=== PATIENT | male | born 1980 | race Caucasian/White ===

== ENCOUNTER 2016-08-21 20:33 | Inpatient (IN) | payer MEDICAID ==
[~2016-08-21] VITALS: Ht 170.2 cm; Wt 75.7 kg
--- NOTE | 2016-08-21 21:45 | ERA ---
ER Documentation Chief Complaint Date/Time DATE: 08/21/16 TIME: 21:44 Chief Complaint states been vomiting blood/blood in stool x 1 day HPI The patient is a 35-year-old male, presenting to the ER because he complains of epigastric abdominal pain 6/10 intermittently for the last 4 days, denies similar symptoms previously. He vomited coffee-ground emesis, about 1 teaspoon 2 today and had multiple bowel movements with black stools for the last day. He denies constipation, hemorrhoids. He complains of dizziness, denies syncope , near syncope, neck pain, chest pain, dyspnea. He takes a lot of ibuprofen for acme-qos-ymmirux for his headache. He smokes a pack a day, denies drinking , denies illicit drug Past medical history: None Past surgical history: Appendectomy ROS All systems reviewed and are negative except as per history of present illness. Medications Home Meds Reported Medications Acetaminophen/Caffeine (Excedrin Tension Headache Cplt) 1 Each Tablet, 2 EACH PO DAILY Y for PAIN, TAB 08/21/16 Allergies Allergies: Coded Allergies: No Known Drug Allergies (Verified Allergy, Unknown, 08/21/16) Physical Exam Vitals Vital Signs Date Time Temp Pulse Resp B/P Pulse Ox O2 Delivery O2 Flow Rate FiO2 08/21/16 21:46 113 16 117/92 100 Room Air 08/21/16 21:20 99.1 120 20 132/75 99 Physical Exam Const: No acute distress. Head: Atraumatic. Eyes: Normal Conjunctiva. ENT: Normal External Ears, Nose and Mouth. Neck: Full range of motion. No meningismus. Resp: Clear to auscultation bilaterally. Cardio: Regular rate and rhythm, no murmurs. Abd: Soft, non distended, normal bowel sounds, mild epigastric tenderness, no right lower quadrant, right upper quadrant, CVA, rigidity, rebound tenderness Skin: No petechiae or rashes. Back: No midline or flank tenderness. Ext: No cyanosis, or edema. Neur: Awake and alert. No focal deficit Psych: Normal Mood and Affect. Rectal: Positive Hemoccult Result Diagram: 08/21/16 2200 08/21/16 2200 Results 24 hrs Laboratory Tests Test 08/21/16 22:00 08/21/16 22:38 Activated Partial Thromboplast Time 27.7Sec Alanine Aminotransferase (ALT/SGPT) 53IU/L Albumin 4.1g/dl Albumin/Globulin Ratio 1.64 Alkaline Phosphatase 75IU/L Anion Gap 15 Aspartate Amino Transf (AST/SGOT) 19IU/L Basophils # 0.010^3/ul Basophils % 0.3% Blood Urea Nitrogen 24mg/dl Calcium Level 9.3mg/dl Carbon Dioxide Level 30mmol/L Chloride Level 101mmol/L Creatinine 0.75mg/dl Direct Bilirubin 0.00mg/dl Eosinophils # 0.010^3/ul Eosinophils % 0.3% Globulin 2.50g/dl Glucose Level 111mg/dl Hematocrit 32.5% Hemoglobin 11.9g/dl INR International Normalized Ratio 0.98 Indirect Bilirubin 0.3mg/dl Lipase 57U/L Lymphocytes # 3.210^3/ul Lymphocytes % 26.7% Mean Corpuscular Hemoglobin 30.4pg Mean Corpuscular Hemoglobin Concent 36.6g/dl Mean Corpuscular Volume 82.9fl Mean Platelet Volume 9.8fl Monocytes # 0.810^3/ul Monocytes % 6.8% Neutrophils # 7.810^3/ul Neutrophils % 65.5% Nucleated Red Blood Cells # 0.010^3/ul Nucleated Red Blood Cells % 0.0/100WBC Platelet Count 45072^3/UL Potassium Level 3.7mmol/L Prothrombin Time 13.0Sec Prothrombin Time Ratio 1.0 Red Blood Count 3.9210^6/ul Red Cell Distribution Width 11.6% Sodium Level 142mmol/L Total Bilirubin 0.3mg/dl Total Protein 6.6g/dl White Blood Count 11.910^3/ul Bedside Urine Blood Negative Bedside Urine Glucose (UA) Negative Bedside Urine Ketones (LAB) Trace Bedside Urine Leukocyte Esterase (L Negative Bedside Urine Nitrite (LAB) Negative Bedside Urine Protein (LAB) Negative Bedside Urine pH (LAB) 6.0 Current Medications Medications (Trade) Dose Ordered Sig/Che Route PRN Reason Start Time Stop Time Status Last Admin Dose Admin Ondansetron HCl 4 mg 4 mg ONCE STAT IV 08/21/16 21:53 08/21/16 21:57 DC 08/21/16 22:13 Sodium Chloride (NS) 1,000 ml @ 1,000 mls/hr Q1H ONCE IV 08/21/16 22:00 08/21/16 22:59 DC 08/21/16 22:11 Lidocaine 1 applic 1 applic ONCE ONCE TOP 08/21/16 22:30 08/21/16 22:31 DC 08/21/16 22:24 Sodium Chloride (NS) 1,000 ml @ 75 mls/hr [id number] IV 08/22/16 00:16 IV Flush (NS 3 ml) 3 ml PER PROTOCOL IV 08/22/16 00:30 Ondansetron HCl (Zofran Inj) 4 mg Q6H PRN IV NAUSEA AND/OR VOMITING 08/22/16 00:30 Acetaminophen (Tylenol Supp) 650 mg Q6H PRN NE PAIN LEVEL 1-3 OR FEVER 08/22/16 00:30 Morphine Sulfate 2 mg 2 mg Q4H PRN IV SEVERE PAIN LEVEL 7-10 08/22/16 00:30 Pantoprazole/ Sodium Chloride (Protonix Iv/NS) 100 ml @ 10 mls/hr Q10H IV 08/22/16 00:30 Procedures/[place] [id number] Radiology Main Line: [phone] DIAGNOSTIC IMAGING REPORT Patient: DERIC MAE : 1980 Age: 35 Sex: M MR #: [id number] DOS: 08/21/162152 Ordering MD: EDIN REINOSO MD Location: E/R Room/Bed: PROCEDURE: XR Chest. CLINICAL INDICATION: Shortness of breath. TECHNIQUE: A single portable view of the chest was obtained. COMPARISON: None FINDINGS: The cardiomediastinal silhouette is within normal limits. 7 mm calcified granuloma in the left lower lung zone is seen. The remaining lungs and pleural spaces are clear. The soft tissues and osseous structures are unremarkable. IMPRESSION: No acute cardiopulmonary disease. 7 mm calcified granuloma in the left lower lung zone. RPTAT: HPNM Physician [place] Date Time Electronically viewed and signed by Tyler Maddox Physician on 08/21/2016 22 :22 / CC: EDIN REINOSO MD [place] [id number] Radiology Main Line: [phone] DIAGNOSTIC IMAGING REPORT Patient: DERIC MAE : 1980 Age: 35 Sex: M MR #: [id number] DOS: 08/21/16 2153 Ordering MD: EDIN REINOSO MD Location: E/R Room/Bed: PROCEDURE: CT abdomen and pelvis without intravenous contrast. CLINICAL INDICATION: Epigastric pain. TECHNIQUE: CT of the abdomen/pelvis was performed utilizing axial images with reconstructions in sagittal and coronal planes. The administered radiation dose is CTDI 17 mGy, DLP 945 mGy-cm. COMPARISON: No pertinent prior examinations were submitted for comparison. FINDINGS: Visualized Chest: A calcified granuloma is noted in the left lower lobe. Abdomen: The spleen, pancreas, gallbladder,and adrenal glands are unremarkable. The liver is diffusely decreased in attenuation, compatible with hepatic steatosis. The kidneys are without hydronephrosis. No definite urinary calculi are seen. There is no evidence of bowel obstruction. Prior appendectomy is noted. No intra-abdominal free air is seen. There is no evidence of intra-abdominal adenopathy or free fluid. Pelvis: There is no evidence of pelvic adenopathy of free fluid. The prostate and bladder are unremarkable. Osseous structures: Unremarkable. IMPRESSION: No acute findings. Hepatic steatosis. RPTAT: HIKT .Alfred Segal MD, MD Date Time Electronically viewed and signed by .Alfred Segal MD, MD on 08/21/2016 23:01 .T/ CC: EDIN REINOSO MD [place] [id number] Radiology Main Line: [phone] DIAGNOSTIC IMAGING REPORT Patient: DERIC MAE : 1980 Age: 35 Sex: M [id number] [id number] DOS: 08/21/16 2308 Ordering MD: EDIN REINOSO MD Location: E/R Room/Bed: PROCEDURE: XR Chest. CLINICAL INDICATION: Nasogastric tube placement TECHNIQUE: Single frontal view of the chest was obtained. COMPARISON: Earlier examination at 10:06 p.m. FINDINGS: The cardiomediastinal silhouette is normal size. Pulmonary vasculature is within normal limits. There is a calcified granuloma in the left lower lung.. There is a nasogastric tube placed extending to the gastric body region. No signs of pleural fluid or pneumothorax are seen. The osseous structures and soft tissues are unremarkable. IMPRESSION: No evidence for active cardiopulmonary disease. Nasogastric tube extending to the gastric body. RPTAT: HBST .Jenaro Shah MD, MD Date Time Electronically viewed and signed by .Jenaro Shah MD, MD on 08/21/2016 23:50 .T/ CC: EDIN REINOSO MD MEDICAL MAKING DECISION: The patient is a 35-year-old male, presenting with acute gastrointestinal bleeding. He was treated with Zofran 4 mg IV for nausea and 1 L normal saline for acute clinical dehydration. The differential diagnoses considered include but are not limited to gastritis, peptic ulcer disease, esophageal varices, Savi-Cantu tear, carcinoma, polyp, hemorrhoid, fissure, diverticulosis, angiodysplasia. Nasogastric tube was inserted that did not drain out any coffee-ground emesis. He was then removed due to patient discomfort Departure Diagnosis: Primary Impression: GI bleed Additional Impression: Anemia Condition: Stable Comments I discussed the findings with the patient. I discussed the patient with the on- call hospitalist at the [facility] who was made aware of the lab, the treatment, the patient condition. The patient is admitted to medical surgery bed at 12:15 AM The patient's blood pressure was elevated (>120/80) but appears stable without evidence of hypertension emergency or urgency. The patient was counseled about the risks of hypertension and urged to pursue outpatient monitoring and therapy within a week after discharge with their primary care physician. EDIN REINOSO MD Aug 21, 2016 21:45
[2016-08-21] MEDS ORDERED: ONDANSETRON 4 MG INJ IV STA (21:53)
[2016-08-21] MEDS ORDERED: SOD CHLORIDE 0.9% 1,000 ML IV ONE (22:00)
[2016-08-21] MEDS ORDERED: ACET1TAB16 PO (22:00)
[2016-08-21 22:20] LABS: ADD SCAN DIFF NO
--- NOTE | 2016-08-21 22:23 | RADRPT ---
PROCEDURE: XR Chest. CLINICAL INDICATION: Shortness of breath. TECHNIQUE: A single portable view of the chest was obtained. COMPARISON: None FINDINGS: The cardiomediastinal silhouette is within normal limits. 7 mm calcified granuloma in the left lower lung zone is seen. The remaining lungs and pleural spaces are clear. The soft tissues and osseous structures are unremarkable. IMPRESSION: No acute cardiopulmonary disease. 7 mm calcified granuloma in the left lower lung zone. RPTAT: HPNM Physician [place] Date Time Electronically viewed and signed by Tyler Maddox Physician on 08/21/2016 22:22 /
[2016-08-21] MEDS ORDERED: LIDOCAINE 2% JELLY 5 ML TOP ONE (22:30)
[2016-08-21 22:32] LABS: INR 0.98
[2016-08-21 22:33] LABS: PARTIAL THROMBOPLASTIN TIME 27.7 Sec (25.0-35.0)
[2016-08-21 22:37] LABS: URINE BLOOD (Dip) POC Negative (NEGATIVE)
[2016-08-21 22:39] LABS: ALBUMIN 4.1 g/dl (3.3-4.9); POTASSIUM 3.7 mmol/L (3.5-5.1)
[2016-08-21 22:42] LABS: ALBUMIN/GLOBULIN RATIO 1.64; BILIRUBIN,INDIRECT 0.3 mg/dl (0-1.1); BILIRUBIN,TOTAL 0.3 mg/dl (0.2-1.3); CALCIUM 9.3 mg/dl (8.4-10.2); CREATININE 0.75 mg/dl (0.61-1.24); TOTAL PROTEIN 6.6 g/dl (6.1-8.1)
[2016-08-21 22:47] LABS: BASOPHILS % 0.3 % (0.0-2.0); EOSINOPHILS % 0.3 % (0.0-7.0); HEMATOCRIT 32.5 % (42.0-52.0); HEMOGLOBIN 11.9 g/dl (14.0-18.0); LYMPHOCYTES # 3.2 10^3/ul (0.8-2.9); LYMPHOCYTES % 26.7 % (15.0-51.0); MEAN CORPUSCULAR HEMOGLOBIN 30.4 pg (29.0-33.0); MEAN CORPUSCULAR HGB CONC 36.6 g/dl (32.0-37.0); MEAN CORPUSCULAR VOLUME 82.9 fl (82.0-101.0); MEAN PLATELET VOLUME 9.8 fl (7.4-10.4); MONOCYTE # 0.8 10^3/ul (0.3-0.9); MONOCYTES % 6.8 % (0.0-11.0); NEUTROPHIL # 7.8 10^3/ul (1.6-7.5); NEUTROPHILS % 65.5 % (39.0-77.0); PLATELET COUNT 324 10^3/UL (140-415); RED BLOOD COUNT 3.92 10^6/ul (4.70-6.10); RED CELL DISTRIBUTION WIDTH 11.6 % (11.5-14.5); WHITE BLOOD COUNT 11.9 10^3/ul (4.8-10.8)
--- NOTE | 2016-08-21 23:01 | RADRPT ---
PROCEDURE: CT abdomen and pelvis without intravenous contrast. CLINICAL INDICATION: Epigastric pain. TECHNIQUE: CT of the abdomen/pelvis was performed utilizing axial images with reconstructions in s agittal and coronal planes. The administered radiation dose is CTDI 17 mGy, DLP 945 mGy-cm. COMPARISON: No pertinent prior examinations were submitted for comparison. FINDINGS: Visualized Chest: A calcified granuloma is noted in the left lower lobe. Abdomen: The spleen, pancreas, gallbladder,and adrenal glands are unremarkable. The liver is diffusely dec reased in attenuation, compatible with hepatic steatosis. The kidneys are without hydronephrosis. No definite urinary calculi are seen. There is no evidence of bowel obstruction. Prior appendectomy is noted. No intra-abdominal free ai r is seen. There is no evidence of intra-abdominal adenopathy or free fluid. Pelvis: There is no evidence of pelvic adenopathy of free fluid. The prostate and bladder are unremarkable. Osseous structures: Unremarkable. IMPRESSION: No acute findings. Hepatic steatosis. RPTAT: HIKT .Alfred Segal MD, MD Date Time Electronically viewed and signed by .Alfred Segal MD, on 08/21/2016 23:01 .T/
--- NOTE | 2016-08-21 23:50 | RADRPT ---
PROCEDURE: XR Chest. CLINICAL INDICATION: Nasogastric tube placement TECHNIQUE: Single frontal view of the chest was obtained. COMPARISON: Earlier examination at 10:06 p.m. FINDINGS: The cardiomediastinal silhouette is normal size. Pulmonary vasculature is within normal limits. Th ere is a calcified granuloma in the left lower lung.. There is a nasogastric tube placed extending t o the gastric body region. No signs of pleural fluid or pneumothorax are seen. The osseous structures and soft tissues are unre markable. IMPRESSION: No evidence for active cardiopulmonary disease. Nasogastric tube extending to the gastric body. RPTAT: HBST .Jenaro Shah MD, MD Date Time Electronically viewed and signed by .Jenaro Shah MD, on 08/21/2016 23:50 .T/
[2016-08-22] VITALS (9 sets, daily range): BP systolic 95–121; BP diastolic 59–73; PULSE 84–101; RESP 18–20; TEMP 98.6; Ht 170.2 cm; Wt 75.7 kg
[2016-08-22] MEDS ORDERED: NACL 0.9% 3 ML SYG IV SCH (00:30)
[2016-08-22] MEDS ORDERED: ONDANSETRON 4 MG INJ IV PRN (00:30)
[2016-08-22] MEDS ORDERED: morphine 2 MG INJ IV PRN (00:30)
[2016-08-22] MEDS ORDERED: ACETAMINOPHEN 650 MG SUPP PR PRN (00:30)
[2016-08-22] MEDS ORDERED: PANTOPRAZOLE IV 80 MG in SOD CHLORIDE 0.9% 100 ML IV SCH (00:30)
--- NOTE | 2016-08-22 00:38 | HP ---
Date/Time of Note Date/Time of Note DATE: 08/22/16 TIME: 00:29 Assessment/Plan VTE Prophylaxis VTE Prophylaxis Intervention: contraindicated, SCD's VTE Contraindication Reason: bleeding Assessment/Plan Assessment/Plan 35 yo male with a past medical history of smoking abuse, who complains of hematemesis and melanotic stools 1 day duration. 1. Upper GI bleed vs LGIB - 2/2 PUD medication induced will admit the patient to med/surg, consult GI for endoscopy, protonix GTT, c/w NPO, IVF, monitor changes 2. Anemia - acute blood loss - transfuse if the patient becomes symptomatic, or if Hgb < 8 g/dL, q6h H/H 3. Smoking abuse - patient counseled on cessation 4. Leukocytosis - reactive - monitor trend 5. GI ppx - protonix gtt 6. DVT ppx - scds answered all of his questions. as per clinical course. this history and physical took greater then 45 minutes to complete HPI/ROS Admit Date/Time Admit Date/Time 08/22/2016, 12:31 am Hx of Present Illness 35 yo male with a past medical history of smoking abuse, who complains of hematemesis and melanotic stools 1 day duration. The patient has been taking 1000 mg of ibuprofen once to twice a day for headaches over the last several days. Yesterday he was feeling nauseated and noted hematemesis x 3 episodes. Also he had passed stool that was maroon colored. Otherwise denies any hematochezia/BRBPR or other bleeding sites. He does have a burning sensation in his stomach. Denies any chest pain, shortness of breath, loss of consciousness, headaches, urinary irregularities, fevers/chills, or other constitutional symptoms. ED course: IVF, NPO, NGT removed no blood noted, zofran ROS 14 point review of systems completed, please refer to HPI for any positive findings PMH/Family/Social Past Medical History Medical History: no pertinent history Past Surgical History Past Surgical Hx: appendectomy Family History Significant Family History: no pertinent family hx Social History Alcohol Use: none Smoking Status: Current every day smoker (1 ppd x 17 years) Drug Use: none Exam/Review of Systems Vital Signs Vitals Vital Signs Date Time Temp Pulse Resp B/P Pulse Ox O2 Delivery O2 Flow Rate FiO2 08/21/16 21:46 113 16 117/92 100 Room Air 08/21/16 21:20 99.1 Exam Exam Gen Lilo: mild distress 2/2 reflux like symptoms, AAOx4 HEENT: NC/AT, PERRLA, EOMI, no pharyngeal erythema, no tonsillar exudates, no lymphadenopathy, no JVD, no carotid bruits NECK: supple, no thyromegaly THORAX: symmetrical, no obvious deformities CV: S1S2, RRR, no M/G/R Lungs: CTAB no W/C/R/R Abd: soft, NT/ND, +BS, no rebound, no guarding, neg HSM EXT: no edema, no ecchymosis, no clubbing, FROM Neuro: CN II-XII grossly intact, no focal deficits Psych: good mentation, alert and oriented, good mood and affect Skin: C/D/I Labs Result Diagram: 08/21/16219908/21/162199 Medications Medications Current Medications Sodium Chloride (NS) 1,000 ml @ 75 mls/hr [id number] IV ; Start 08/22/16 at 00:16 Ondansetron HCl (Zofran Inj) 4 mg Q6H PRN IV NAUSEA AND/OR VOMITING; Start at 00:30 Acetaminophen (Tylenol Supp) 650 mg Q6H PRN [place] PAIN LEVEL 1-3 OR FEVER; Start 08/22/16 at 00:30 Morphine Sulfate 2 mg 2 mg Q4H PRN IV SEVERE PAIN LEVEL 7-10; Start 08/22/16 at 00:30 Pantoprazole/ Sodium Chloride (Protonix Iv/NS) 100 ml @ 10 mls/hr Q10H IV ; Start 08/22/16 at 00:[address] chest IMPRESSION: No acute findings. Hepatic steatosis. CXR IMPRESSION: No acute cardiopulmonary disease. 7 mm calcified granuloma in the left lower lung zone. PAZ FUENTES MD Aug 22, 2016 00:38
[2016-08-22 02:46] LABS: HEMATOCRIT 27.2 % (42.0-52.0); HEMOGLOBIN 10.1 g/dl (14.0-18.0)
[2016-08-22] MEDS: SOD CHLORIDE 0.9% 1,000 ML IV SCH ×2 (03:22→13:36)
--- NOTE | 2016-08-22 09:24 | QN ---
Documentation Comment The patient was seen and examined. The plan of care was explained to the patient. The patient was complaining of severe headache over the past several days. Hence a brain CT scan will be ordered to evaluate for any underlying acute intracranial pathology. Case discussed with Dr. Hodge. ALEX SPENCER NP Aug 22, 2016 09:24
[2016-08-22] MEDS ORDERED: PROPOFOL 40 ML ONE (09:45)
--- NOTE | 2016-08-22 10:12 | CONS ---
Date/Time of Note Date/Time of Note DATE: 08/22/16 TIME: 10:07 Assessment/Plan Assessment/Plan Additional Assessment/Plan Assessment: * Upper GI bleeding/hematemesis/melena * Rule out peptic ulcer disease/GERD/others * Moderate anemia * History of heavy smoking * History of nonsteroidal inflammatory agent use Plan: * EGD now. Patient was explained the procedure including risks, benefits and alternatives. He is agreeable to proceed * Further recommendation will depend on findings. Consultation Date/Type/Reason Admit Date/Time 08/22/2016, 12:31 am Date of Consultation: Aug 22, 2016 Type of Consultation: Gastroenterology Reason for Consultation GI bleeding Hx of Present Illness 35-year-old male with history of frequent use of nonsteroidal inflammatory agents for management of his frequent headaches, the patient is also a heavy smoker with at least one pack of cigarettes a day. He presented to the emergency room complaining of melena followed by episodes of hematemesis. Evaluation in the emergency room showed moderate anemia. The patient was placed on a Protonix drip and hospitalized. Since his admission the patient has had no further episodes of melena or hematemesis. His hemoglobin dropped slightly on hydration. At this point I would recommend the patient be evaluated endoscopically as he clearly is presenting with an episode of epigastric intestinal bleeding and given his history most likely explanation would be nonsteroidal anti-inflammatory agent use. The procedure was explained to the patient including risks, benefits and alternatives. He is agreeable to proceed Constitutional: improved, no complaints Eyes: no complaints ENT: no complaints Respiratory: no complaints Cardiovascular: no complaints Gastrointestinal: other (Hematemesis, melena) Genitourinary: no complaints Musculoskeletal: no complaints Skin: no complaints Neurologic: no complaints Endocrine: no complaints Lymphatic: no complaints Psychological: nl mood/affect, no complaints Immunologic: no complaints Past Medical History Medical History: no pertinent history Past Surgical History Past Surgical Hx: appendectomy Family History Significant Family History: no pertinent family hx Social History Alcohol Use: rarely Smoking Status: Heavy tobacco smoker Drug Use: none Exam/Review of Systems Vital Signs Vitals Vital Signs Date Time Temp Pulse Resp B/P Pulse Ox O2 Delivery O2 Flow Rate FiO2 08/22/16 07:00 97.8 99 20 107/61 100 08/22/16 02:22 Room Air Intake and Output 08/21/16 08/21/16 08/22/16 15:00 23:00 07:00 Intake Total 340 ml Output Total 500 ml Balance -160 ml Exam Constitutional: alert, oriented, well developed Psych: nl mood/affect, no complaints Head: atraumatic, normocephalic Eyes: EOMI, PERRL, nl conjunctiva, nl lids, nl sclera ENMT: nl external ears & nose, nl lips & teeth, nl nasal mucosa & septum Neck: non-tender, supple Respiratory: clear to auscultation, normal air movement Cardiovascular: nl pulses, regular rate and rhythm Gastrointestinal: bowel sounds, nl liver, spleen, other (Rectal exam melena), soft, tender (Moderately epigastric area), No ascites, No distended, No hepatomegaly, No mass, No rebound or guarding, No splenomegaly, No surgical scars Musculoskeletal: nl extremities to inspection, nl gait and stance Extremities: normal pulses Neurological: TRANSIT BUS DRIVER II-XII intact, nl mental status, nl speech, nl strength Skin: nl turgor, No rash or lesions Lymph: nl lymph nodes Results Result Diagram: 08/22/16 0240 08/21/16 2200 Results 24 hrs Laboratory Tests Test 08/21/16 22:00 08/21/16 22:38 08/22/16 02:40 Activated Partial Thromboplast Time 27.7 Alanine Aminotransferase (ALT/SGPT) 53 Albumin 4.1 Albumin/Globulin Ratio 1.64 Alkaline Phosphatase 75 Anion Gap 15 Aspartate Amino Transf (AST/SGOT) 19 Basophils # 0.0 Basophils % 0.3 Blood Urea Nitrogen 24 H Calcium Level 9.3 Carbon Dioxide Level 30 Chloride Level 101 Creatinine 0.75 Direct Bilirubin 0.00 Eosinophils # 0.0 Eosinophils % 0.3 Globulin 2.50 Glucose Level 111 Hematocrit 32.5 L 27.2 L Hemoglobin 11.9 L 10.1 L INR International Normalized Ratio 0.98 Indirect Bilirubin 0.3 Lipase 57 Lymphocytes # 3.2 H Lymphocytes % 26.7 Mean Corpuscular Hemoglobin 30.4 Mean Corpuscular Hemoglobin Concent 36.6 Mean Corpuscular Volume 82.9 Mean Platelet Volume 9.8 Monocytes # 0.8 Monocytes % 6.8 Neutrophils # 7.8 H Neutrophils % 65.5 Nucleated Red Blood Cells # 0.0 Nucleated Red Blood Cells % 0.0 Platelet Count 324 Potassium Level 3.7 Prothrombin Time 13.0 Prothrombin Time Ratio 1.0 Red Blood Count 3.92 L Red Cell Distribution Width 11.6 Sodium Level 142 Total Bilirubin 0.3 Total Protein 6.6 White Blood Count 11.9 H Bedside Urine Blood Negative Bedside Urine Glucose (UA) Negative Bedside Urine Ketones (LAB) Trace H Bedside Urine Leukocyte Esterase (L Negative Bedside Urine Nitrite (LAB) Negative Bedside Urine Protein (LAB) Negative Bedside Urine pH (LAB) 6.0 Medications Medications Current Medications Sodium Chloride (NS) 1,000 ml @ 75 mls/hr [id number] IV Last administered on 08/22 03:22; Admin Dose 75 MLS/HR; Start 08/22/16 at 00:16 Ondansetron HCl (Zofran Inj) 4 mg Q6H PRN IV NAUSEA AND/OR VOMITING; Start at 00:30 Acetaminophen (Tylenol Supp) 650 mg Q6H PRN [place] PAIN LEVEL 1-3 OR FEVER; Start 08/22/16 at 00:30 Morphine Sulfate 2 mg 2 mg Q4H PRN IV SEVERE PAIN LEVEL 7-10; Start 08/22/16 at 00:30 Pantoprazole/ Sodium Chloride (Protonix Iv/NS) 100 ml @ 10 mls/hr Q10H IV Last administered on 08/22/16 03:22; Admin Dose 10 MLS/HR; Start 08/22/16 at 00 :30 Nicotine (Nicoderm 14 Mg/ 24hr) 1 patch DAILY TRANSDERM ; Start 08/22/16 at 10: 30 ANDREA DOUGLAS MD Aug 22, 2016 10:12
[2016-08-22] MEDS ORDERED: NICOTINE (14 MG/24 HR) PATCH TRANSDERM SCH (10:30)
--- NOTE | 2016-08-22 10:55 | GILP ---
DATE OF PROCEDURE: 08/22/2016 NAME OF PROCEDURE: Esophagogastroduodenoscopy with biopsies. SURGEON: Andrea Farrell MD. PREMEDICATION: Monitored anesthesia care by anesthesiologist. INSTRUMENT USED: Olympus panendoscope. TECHNIQUE: After informed consent, with the patient/relatives understanding the procedure, its indic ations, potential risks and complications, including but not limited to: allergic reaction, bleeding , perforation or infection, and after all pertinent questions were answered to the patients satisfac tion, the patient/relatives signed witnessed informed consent. Following this, premedication was administered slowly IV push under careful cardiovascular and respi ratory monitoring with pulse oximetry, automatic blood pressure and bus driver/monitor. Once the sedative effect was achieved the patient was place in the left lateral decubitus, the panen doscope was introduced and advanced under visual control. Careful examination of the upper gastrointestinal tract, both on insertion as well as withdrawal of the instrument disclosed the following findings: ESOPHAGUS: There is erythema and edema and superficial erosion of the mucosa at the distal esophagu s. No evidence of bleeding is noted. STOMACH: Upon entrance to the stomach air was insufflated, the gastric hameed distended normally. The re is erythema and edema of the mucosa of a moderate degree. Biopsies were obtained of the body and antrum of the stomach to rule out H. pylori infection. PYLORUS: The pylorus appears patent and within normal limits, with no evidence of gastric outlet obs truction. DUODENUM: The duodenal bulb was remarkable for the presence of a 1 cm. clean-based duodenal ulcer, likely responsible for an episode of bleeding. No stigmata of recent bleeding or potential for rebl eeding is present. The second portion of the duodenum is unremarkable. The instrument was then withdrawn, the patient tolerated the procedure well and was transfer out of the endoscopy suite awake, and in good condition to continue recovery under observation IMPRESSION: 1. Erosive esophagitis. 2. Moderate gastritis. Rule out Helicobacter pylori infection. Biopsies obtained. 3. A 1 cm clean based duodenal ulcer. PLAN: The patient will be treated with PPI, double dose. Avoid nonsteroidal anti-inflammatory agen ts. Discontinuing smoking would be advisable. Advance diet as tolerated. Hemoglobin and hematocri t remain stable. He would be a good candidate for early discharge. Dictated By: ANDREA FARRELL MS/JOHNNY Conf#: [id number] DID#: [id number] CC: ANDREA FARRELL;*EndCC*
--- NOTE | 2016-08-22 11:32 | RADRPT ---
PROCEDURE: CT Brain without contrast. CLINICAL INDICATION: Cephalgia TECHNIQUE: A CT of the brain was performed utilizing a multidetector CT scanner utilizing axial im aging from the skull base through the vertex without IV contrast. Multiplanar reformatted images we re made. Images were reviewed on a PACS workstation. The CTDIvol is 37 mGy and the DLP is 555 mGyc m. COMPARISON: None FINDINGS: There is no intracranial hemorrhage, mass effect, or midline shift. No extra-axial fluid collection is seen. The ventricles and sulci are normal in size and configuration. The density of the brain is normal, and the stein white matter differentiation appears well-preserved. There are coarse calcific ations seen deep in the sulci on the anterior left frontal lobe and in the posterior right temporal lobe compatible with old inflammatory process. The visualized paranasal sinuses and osseous structur es are grossly unremarkable. IMPRESSION: Coarse calcification deep in the right frontal and temporal lobe sulci compatible with old inflammat ory process. No intracranial hemorrhage, mass or infarct. .Dannie Johnson MD, Date Time Electronically viewed and signed by .Dannie Johnson MD, on 08/22/2016 11:31 .A/
[2016-08-22] MEDS ORDERED: ACETAMINOPHEN 325 MG TAB PO PRN (12:00)
[2016-08-22 14:31] LABS: HEMATOCRIT 25.5 % (42.0-52.0); HEMOGLOBIN 9.1 g/dl (14.0-18.0)
--- NOTE | 2016-08-22 15:59 | PDOCDIS ---
Discharge Instructions DIAGNOSIS Discharge Diagnosis: Esophagitis, gastritis, duodenal ulcer. Hepatic steatosis. CONDITION Patient Condition: Stable HOME CARE INSTRUCTIONS: Diet Instructions: Low Fat /Cholesterol FOLLOW UP/APPOINTMENTS Appointments David Miller MD Specialty: Internal Medicine Office Address: [address] [place], [place] [id number] Office OTHER ORDERS: Other Orders: 1. Take a low-cholesterol, low spice diet as tolerated. 2. Avoid NSAIDs [Motrin, aspirin, naproxen, etc.]. 3. Avoid smoking. 4. Resume activities as tolerated. 5. Use lhsu-yrn-aloounf Tylenol for severe headache. 6. Take medications as per prescription. 7. Follow-up with your primary care physician in 2 weeks. If you do not have a primary care physician, please call Dr. David Miller's office. ALEX SPENCER NP Aug 22, 2016 15:59
[2016-08-22] MEDS ORDERED: PANT40TA4 PO ×2 (16:00→16:04)
--- NOTE | 2016-08-22 17:25 | DS ---
DATE OF ADMISSION: 08/21/2016 DATE OF DISCHARGE: 08/22/2016 FINAL DIAGNOSES: 1. Symptomatic anemia secondary to acute blood loss 2. Erosive distal esophagitis. 3. Moderate gastritis. 4. Duodenal ulcer. 5. Tension headache. 6. Nicotine use. CONSULTANTS: Kim Farrell MD, Gastroenterology. HOSPITAL COURSE: This is a 35-year-old male with past medical history of nicotine use who came to the emergency room with chief complaint of hematemesis and melenic stools of 1 day duration. The patient has been taking 1000 mg ibuprofen once or twice a day for a severe headache over the past several days. On 08/21/2016, the patient was feeling nauseated and noted hematemesis x3 episodes. He also passed stool that was maroon colored. The patient was complaining of a burning sensation in the stomach. He denied any chest pain, dyspnea, loss of consciousness, urinary irregularities, fevers, chills or other constitutional symptoms. In the emergency room, the patient was noticed to have a hemoglobin and hematocrit of 11.9 and 32.5, respectively. The patient's stool for OB was positive. The patient underwent a CT scan of the abdomen and pelvis that was negative for any acute intra-abdominal findings other than hepatic steatosis. Provided the patient's history of present illness and the diagnostic findings, a clinical decision was made to admit the patient to inpatient setting to have him further evaluated. The patient was admitted inpatient to medical/surgical floor. The patient was kept n.p.o. The patient was started on a Protonix drip. A gastroenterology consult was obtained. The patient underwent an esophagogastroduodenoscopy that revealed erosive esophagitis and moderate gastritis, along with a 1 cm clean-based duodenal ulcer. Hence, the c4 planner recommended to start the patient on double dose proton pump inhibitor therapy. The patient's H and H remained stable. The patient's EGD findings were confirmed to be because of significant NSAID use and contributed by smoking. The patient was complaining also of cephalgia that has been going on for the past few days. It is associated with some visual changes. Hence, the patient underwent a CT scan of the brain that was negative for any intracranial hemorrhage, mass or infarct. The patient is a current nicotine user and he smokes a pack of cigarettes per day. The patient was maintained on nicotine patch. The patient had a stable hospital course. The patient was cleared by gastroenterology to be discharged home. The patient denied any complaints at the time of discharge. The patient was able to tolerate a regular consistency diet without any significant gastrointestinal symptoms. DISCHARGE DISPOSITION/PLAN: The patient will be discharged home today. The patient was instructed to take a low-cholesterol, low-spicy diet as tolerated. The patient was instructed to avoid NSAIDs. He was instructed to avoid smoking. He was instructed to resume activities as tolerated. He was instructed to use rfvf-ioo-lcvenyl Tylenol for severe headache. He was instructed to take medications as per prescription. The patient was instructed to follow up with his primary care physician in 2 weeks and if he does not have a primary care physician, to please call Dr. David Miller's office. The patient verbalized understanding of his discharge instructions. CONDITION AT DISCHARGE: Stable. DISCHARGE MEDICATION: Protonix 40 mg p.o. b.i.d., 30 tablets, 2 refills. PERTINENT LABORATORY AND DIAGNOSTIC DATA: 1. Esophagogastroduodenoscopy. Erosive esophagitis. Moderate gastritis. A 1 cm clean-based duodenal ulcer. 2. Chest x-ray. No acute cardiopulmonary disease. A 7 mm calcified granuloma in the left lower lung zone. 3. Brain CT scan. Coarse calcification deep in the right frontal and temporal lobe sulci, compatible with old inflammatory process. No intracranial hemorrhage, mass or infarct. 4. CT scan of the abdomen and pelvis. There was no evidence of pelvic adenopathy or free fluid. The prostate and bladder are unremarkable. Osseous structures are unremarkable. Hepatic steatosis. 5. Latest H and H 9.1 and 25.5, respectively. 6. Stool for OB x1 positive. 7. Latest BMP: Sodium 142, potassium 3.7, chloride 101, carbon dioxide 30, anion gap 15, BUN 24, creatinine 0.75, glucose 111, calcium 9.3. AST 19, ALT 53, alkaline phosphatase 75, total protein 6.6, albumin 4.1, lipase 57. At this time, I would like to thank Dr. Farrell for seeing the patient, doing the necessary procedures, and providing clinical recommendations. The case and management of this patient was fully discussed with Dr. Wagner. Approximately 35 minutes was spent on coordinating the discharge on this patient. ALEX WAGNER MD, AM/JOHNNY Conf#: [id number] [facility]#: [id number] MTDD
[2016-08-22] MEDS ORDERED: PANTOPRAZOLE (EC) 40 MG TAB PO SCH (18:00)
== END 2016-08-22 16:50 | disposition home or self-care (01) | DRG 378 ==
LOC: E/R 20:33 → MS1 08-22 00:20
PROVIDERS: ADMIT Student in an Organized Health Care Education/Training Program; ATTEND Student in an Organized Health Care Education/Training Program
PROC: 0DB68ZX Excision of Stomach, Via Natural or Artificial Opening Endoscopic, Diagnostic (ICD-10-PCS; principal; 2016-08-22 09:30)
DX: K26.4 Chronic or unspecified duodenal ulcer with hemorrhage (principal); D62 Acute posthemorrhagic anemia; K76.0 Fatty (change of) liver, not elsewhere classified; K22.10 Ulcer of esophagus without bleeding; F17.200 Nicotine dependence, unspecified, uncomplicated; Z79.1 Long term (current) use of non-steroidal anti-inflammatories (NSAID); R51 Headache; K29.70 Gastritis, unspecified, without bleeding
CPT/HCPCS: 36415; 70450; 71010; 74176; 80053; 81003; 82270; 83690; 85014; 85018; 85025; 85610; 85730; 86850; 86900; 86901; 88305; 88312; 96374; C9113; J2405; J7030